=== PATIENT | female | born 1950 | race Caucasian/White ===

== ENCOUNTER → 2016-10-27 | Day surgery (SDC) | payer MEDICARE ==
[2016-10-27 08:09] LABS: HCT 42.2 % (37.0-47.0); HGB 13.6 g/dl (12.5-16.0); MCH 31.1 pg (25.0-31.0); MCHC 32.2 g/dL (32.0-36.0); MCV 96.6 fL (78.0-100.0); MPV 9.9 fL (6.0-9.5); RBC 4.37 M/uL (4.20-5.40); RDW 13.6 % (11.5-14.0); WBC 8.6 K/uL (4.0-10.5)
[2016-10-27 08:26] LABS: BILIRUBIN - TOTAL 0.5 mg/dL (0.1-1.0); CREATININE 0.7 mg/dL (0.5-1.0); GLOBULIN (CALCULATION) 2.7 g/dL (2.2-4.2); POTASSIUM 4.6 mmol/L (3.5-5.1); TOTAL PROTEIN 6.7 g/dL (6.4-8.3)
== END | disposition home or self-care (01) ==
LOC: FAS 07:37
PROVIDERS: Surgery
DX: Z12.11 Encounter for screening for malignant neoplasm of colon (principal); I10 Essential (primary) hypertension; E78.00 Pure hypercholesterolemia, unspecified; G47.30 Sleep apnea, unspecified; M19.90 Unspecified osteoarthritis, unspecified site; M51.36 Other intervertebral disc degeneration, lumbar region; Z88.8 Allergy status to other drugs, medicaments and biological substances; Z82.3 Family history of stroke; Z82.49 Family history of ischemic heart disease and other diseases of the circulatory system; Z79.891 Long term (current) use of opiate analgesic; Z79.899 Other long term (current) drug therapy; Z90.710 Acquired absence of both cervix and uterus; Z98.890 Other specified postprocedural states
CPT/HCPCS: 36415; 80053; J2704

== ENCOUNTER 2017-01-22 20:05 | Emergency (ER) | payer MEDICARE | END 2017-01-22 22:30 | disposition home or self-care (01) | LOC: FER 20:05 | DX: S16.1XXA Strain of muscle, fascia and tendon at neck level, initial encounter (principal); S46.912A Strain of unspecified muscle, fascia and tendon at shoulder and upper arm level, left arm, initial encounter; M50.30 Other cervical disc degeneration, unspecified cervical region; I10 Essential (primary) hypertension; E78.5 Hyperlipidemia, unspecified; F17.210 Nicotine dependence, cigarettes, uncomplicated | CPT/HCPCS: 36415; 72040; 84484; 93005; J1100; J1885 ==

== ENCOUNTER 2022-01-05 16:12 | Emergency (ER) | payer MEDICARE ==
[~2022-01-05 16:12] MED LIST: ASPIRIN325 MG PO; BENADRYL25 MG PO; CEFDINIR300 MG PO; CELEXA20 MG PO; CITALOPRAM 40MG40 MG PO; GABAPENTIN PO; LOPRESSOR25 MG PO; LOSARTAN-HCTZ1 EAC1 PO; MIRAPEX0.125 MG PO; NEURONTIN400 MG PO; OMEPRAZOLE40 MG PO; POLY-IRON150 MG PO; PRILOSEC20 MG PO; SIMVASTATIN1 GM PO; SIMVASTATIN40 MG PO; TRAMADOL HCL50 MG PO; ULTRAM50 MG PO; VIBRAMYCIN100 MG PO; VITAMIN B-121000 MC1 PO; VITAMIN D35000 UNIT PO; VOLTAREN **OUT75 MG PO
[2022-01-05] MEDS ORDERED: NORCO 5-325 TA1 EACH PO (17:54)
== END 2022-01-05 18:16 | disposition home or self-care (01) ==
LOC: FER 16:12
DX: S82.64XA Nondisplaced fracture of lateral malleolus of right fibula, initial encounter for closed fracture (principal); S82.65XA Nondisplaced fracture of lateral malleolus of left fibula, initial encounter for closed fracture; S00.83XA Contusion of other part of head, initial encounter; I10 Essential (primary) hypertension; Z88.1 Allergy status to other antibiotic agents; Z88.8 Allergy status to other drugs, medicaments and biological substances; W18.09XA Striking against other object with subsequent fall, initial encounter; Y92.009 Unspecified place in unspecified non-institutional (private) residence as the place of occurrence of the external cause
CPT/HCPCS: 70450; 72125; 73610